=== PATIENT | male | born 1995 | race Caucasian/White ===

== ENCOUNTER 2016-05-18 14:25 | Emergency (ER) | payer OTHER ==
[~2016-05-18] VITALS: Ht 182.9 cm; Wt 68.2 kg
[~2016-05-18 14:25] MED LIST: ASPI-653 PO
[2016-05-18 14:40] VITALS: BP 114/76; PULSE 92; RESP 18; O2SAT 98
[2016-05-18] MEDS ORDERED: KEP500TA PO (16:03)
--- NOTE | 2016-05-18 16:11 | ED.REPORT ---
HPI-Abd Pain M Under 40 Date of Service May 18, 2016 ED Provider: Doc,Ed MD A 20 year old male with a history of splenectomy, seizures, and smoking presents to the ED complaining of a painful lump over his pubic bone. He noticed the lump this morning. The pt also had strep throat two to three weeks ago and was prescribed antibiotics. His symptoms included sore throat, fever, rhinorrhea, and coughing. These symptoms have persisted despite antibiotic use. The pt also vomited once two days ago and experiences chest pain with coughing. He denies any history of abscess. Nursing Notes Stated Complaint: FLU SYMPTOMS Chief Complaint: Male Abdominal Pain Nursing Notes Reviewed: Yes Allergies: Coded Allergies: No Known Allergies (Unverified Allergy, Unknown, 02/02/15) Scheduled Aspirin-Expunged Drug, Do Not Renew! (Lo-Dose Aspirin-Expunged Drug, Do Not Renew!) 81 Mg Tablet.dr 81 MG PO DAILY Levetiracetam (Keppra) 500 Mg Tablet 500 MG PO BID Sulfamethoxazole/Trimeth 800-160 mg (Bactrim DS) 1 Each Tablet 1 TABLET PO BID General Time Seen by MD: 16:11 Chief Complaint Other (Possible abscess) Hx Obtained From: Patient, Other family... (Mother) Arrived By: Walk-in Sudden in Onset?: No Onset Occurred: 5 - 8 hours ago Symptom Duration: Since onset Recent Healthcare: No recent hospitalization, Recent doctor visit Similar Sx Previous: No Past Medical History Past Medical History Seizures Past Surgical History Splenectomy due to trauma Left knee surgery Smoking History Current Every Day Smoker Social History Alcohol Use: "Social" Drug Use: Denies drug use Ambulatory Status Independent Review of Systems Review of Systems Note: lump on top of pubic bone Constitutional: Reports: Fever Respiratory: Reports: Non-productive cough Cardiovascular: Reports: Chest pain (with cough) GI: Reports: Nausea, Vomiting Musculoskeletal: Denies: Back pain, Neck pain Complete sys rev & neg: except as marked. Ears / Nose / Throat: Reports: Sore throat Skin: Denies Rash Allergy / Immune: Reports: Rhinorrhea Physical Exam Initial Vital Signs Vital Signs (First) Date Time Temp Pulse Resp B/P Pulse Ox O2 Delivery O2 Flow Rate FiO2 05/18/16 14:40 37.6 92 18 114/76 98 Room Air Initial VS: Reviewed General/Constitutional: Awake, Alert Respiratory / Chest: Atraumatic, Breath sounds NL, Breath sounds = bilat, No respiratory distress Cardiovascular: Heart rate NL, Regular rhythm, Heart sounds NL Abdomen: Atraumatic, Soft, Non-tender Back: Atraumatic, Full range of motion Head / Eyes: Atraumatic, Normocephalic, PERRL, EOMI ENT: Atraumatic, Airway patent, Mucous membranes moist Neurologic: Oriented X3, Speech NL, No motor deficits, No sensory deficits Neck: Atraumatic, Supple, Full range of motion Upper Extremity / MS: Atraumatic, Full range of motion Lower Extremity / Pelvis / MS: Atraumatic, Full range of motion Skin: Atraumatic, Color NL, Warm, Dry 1 x 1 cm firm erythematous area superior to the penis no fluctuance or drainage no testicular pain no hernia Psychiatric: Affect NL, Mood NL Re-Eval/Medical Decision Med Decision/Clinical Course 20-year-old male history of splenectomy, seizure disorder presenting with swelling above the groin. He has a small folliculitis on exam. There is no abscess at this time, fluctuance, discharge. There is a mild surrounding cellulitis. We will treat with Bactrim. Return precautions given. Follow up primary doctor 2 days for reevaluation. Source of Hx: Old records, Family Re-Evaluation/Progress : Time of Eval: 16:11 Patient Status: Condition improved Re-Evaluation/Progress Note: Pt informed of the diagnosis and plan for discharge during the intial interview. The pt understands and agrees with the plan. All questions are addressed at this time. Counseled Regarding: Diagnosis, Need for follow-up, When/why to return to ED Patient Discharge & Departure Primary Impression: Folliculitis Disposition: Home Discharge Condition All VS Reviewed: Yes Condition: Stable Patient Instructions: Folliculitis (ED) Additional Instructions: Take Bactrim twice daily for seven days. Follow up with your primary care physician for further evaluation. Return to the ED if you develop any new or worsening symptoms including increasing pain or swelling. Referrals: Barbara Palmer (PCP) Scribe Attestation Portions of this note were transcribed by Graeme Steve I, Dr. Lange personally performed the history, physical exam and medical decision-making; I reviewed and confirmed the accuracy of the information in the transcribed note. Signed by: Roslyn Taveras, 05/18/16 and 18:19. copies to: Barbara Palmer Ben M MD May 18, 2016 16:11 GRAEME STEVE May 18, 2016 16:24
[2016-05-18] MEDS ORDERED: SULF1TAB7 PO (16:24)
[2016-05-18 16:47] VITALS: BP 109/70; PULSE 82; RESP 16; O2SAT 95
== END 2016-05-18 16:27 | disposition home or self-care (01) ==
LOC: SED 14:25
DX: L73.9 Follicular disorder, unspecified (principal); R07.9 Chest pain, unspecified; J02.9 Acute pharyngitis, unspecified; J34.89 Other specified disorders of nose and nasal sinuses; R50.9 Fever, unspecified; R05 Cough; F17.200 Nicotine dependence, unspecified, uncomplicated

== ENCOUNTER 2016-05-23 13:09 | Emergency (ER) | payer OTHER ==
[~2016-05-23 13:09] MED LIST changes: +KEP500TA PO; +SULF1TAB7 PO
--- NOTE | 2016-05-23 13:19 | ED.REPORT ---
HPI-Seizure Date of Service May 23, 2016 ED Provider: Alex Whelan DO 20 year old male with known seizure disorder presents to the ER via EMS due to seizure just prior to arrival. He also reports head injury inflicted during the seizure. Patient denies neck pain, and any other injuries secondary to the episode. He states that he is out of Keppra and as a result he has missed doses for the past two days. Last seizure was just over a month ago. Nursing Notes Stated Complaint: SEIZURE Nursing Notes Reviewed: Yes Allergies: Coded Allergies: No Known Allergies (Unverified Allergy, Unknown, 02/02/15) Scheduled Aspirin-Expunged Drug, Do Not Renew! (Lo-Dose Aspirin-Expunged Drug, Do Not Renew!) 81 Mg Tablet.dr 81 MG PO DAILY Levetiracetam (Keppra) 500 Mg Tablet 500 MG PO BID Levetiracetam (Keppra) 500 Mg Tablet 500 MG PO BID Sulfamethoxazole/Trimeth 800-160 mg (Bactrim DS) 1 Each Tablet 1 TABLET PO BID General Time Seen by Provider: 13:17 Chief Complaint Chief Complaint: Seizure, generalized Seizure Anatomic Location: Generalized Hx Obtained From: Patient Arrived By: Ambulance Onset Occurred: Just prior to arrival Progression Since Onset: Resolved Associated with: Denies: Neck pain Pertinent Negative: Pt denies other symptoms Related History: Reports: Known seizure disorder Similar Sx Previous: Yes Past Medical History Past Medical History Seizures Past Surgical History Splenectomy due to trauma Left knee surgery Smoking History Current Every Day Smoker Social History Alcohol Use: "Social" Drug Use: Denies drug use Ambulatory Status Independent Review of Systems Respiratory: Denies: Non-productive cough, Shortness of breath Cardiovascular: Denies: Chest pain Musculoskeletal: Denies: Back pain, Extremity pain, Joint pain, Lumbar pain, Neck pain, Thoracic pain Neurologic: Reports: Seizure Complete sys rev & neg: except as marked. Physical Exam Initial Vital Signs Vital Signs (First) Date Time Temp Pulse Resp B/P Pulse Ox O2 Delivery O2 Flow Rate FiO2 05/23/16 13:21 37.0 122 12 119/51 93 Room Air 05/23/16 13:53 2 Initial VS: Reviewed Extremities: Vascular intact, Neuro intact, No swelling, No tenderness Skin: Warm, Dry, No cyanosis Psychiatric: Mood/affect normal, Behavior normal, Normal thought content General/Constitutional: Awake, Alert, Well developed, Well nourished Neck: Supple, No meningismus, Full range of motion, No swelling, Non-tender Respiratory / Chest: Breath sounds NL, Breath sounds = bilat, No respiratory distress, No rales, No rhonchi, No wheezing Cardiovascular: Heart rate NL, Regular rhythm, Heart sounds NL, Peripheral circulation NL Neurologic: Oriented X3, Speech NL, No motor deficits, No sensory deficits, CN II - XII intact, Cerebellar NL, Memory NL Interpretation & Diagnostics Lab Results Interpretation Result Diagram: 05/23/16 1341 05/23/16 1341 Test 05/23/16 13:41 White Blood Count 10.7th/mm3 (3.8-10.1) Red Blood Count 4.77mil/mm3 (4.40-5.80) Hemoglobin 13.7g/dL (13.8-17.2) Hematocrit 42.1% (41.0-50.0) Mean Corpuscular Volume 88.3fL (81-100) Mean Corpuscular Hemoglobin 28.7pg (27.0-35.0) Mean Corpuscular Hemoglobin Concent 32.5% (32.0-37.0) Red Cell Distribution Width 14.5% (12.3-15.4) Platelet Count 327bil/L (150-400) Neutrophils (%) (Auto) 22.4% (40-74) Lymphocytes (%) (Auto) 65.2% (14-46) Monocytes (%) (Auto) 10.7% (4-12) Eosinophils (%) (Auto) 0.8% (0-5) Basophils (%) (Auto) 0.5% (0-3) Sodium Level 139mEq/L (134-144) Potassium Level 4.0mEq/L (3.5-5.2) Chloride Level 95mEq/L (97-108) Carbon Dioxide Level 10mmol/L (18-29) Blood Urea Nitrogen 13mg/dL (6-20) Creatinine 1.16mg/dL (0.76-1.27) Estimat Glomerular Filtration Rate 84mL/min (>59) Glucose Level 123mg/dL (60-99) Calcium Level 9.3mg/dL (8.5-10.1) Total Bilirubin 0.2mg/dL (0.0-1.2) Aspartate Amino Transf (AST/SGOT) 28U/L (0-50) Alanine Aminotransferase (ALT/SGPT) 13U/L (0-44) Alkaline Phosphatase 88U/L (25-150) Total Protein 8.4g/dL (6.4-8.4) Albumin 4.8g/dL (3.4-5.0) ECG Interpretation ECG Interpretation: Sinus tachycardia, rate 139 Time: 13:48 Interpreted by: ED physician CT Head Interpretation IMPRESSION: No acute intracranial process Dictated by: Akira Silva M.D. on 05/23/2016 at 14:47 Approved by: Akira Silva M.D. on 05/23/2016 at 14:50 Study: Head CT no contrast Interpretation / Wet Read by: Interpret - Radiologist Re-Eval/Medical Decision Med Decision/Clinical Course Patient is a fairly clear history of noncompliance with Keppra for the last 48 hours, initially his family reports that he has not been sleeping well. These things combined may have precipitated breakthrough seizure. This does not meet criteria for status epilepticus. Currently the plan will be to monitor this patient to normal baseline and discharge versus admission if recurrent seizures develop. Source of Hx: Old records Re-Evaluation/Progress #1: Time of Eval: 13:23 Re-Evaluation/Progress Note: Patient began seizing during the initial interview. Re-Evaluation/Progress #2: Time of Eval: 13:35 Re-Evaluation/Progress Note: Patient is post-ictal. Re-Evaluation/Progress #3: Time of Eval: 13:39 Re-Evaluation/Progress Note: Awake, responds to his name. Looks at me and responds "Will" when I ask his name. Re-Evaluation/Progress #4: Time of Eval: 15:04 Re-Evaluation/Progress Note: Patient is now accompanied by a female insole and heel stiffener. Discussed lab and CT results, physical examination findings and plan to discharge. Patient is amenable to the plan. Return precautions given. All other questions addressed. Re-Evaluation/Progress #5: Time of Eval: 15:22 )( Re-Eval Neurologic Exam: Alert, Oriented X3 Re-Evaluation/Progress Note: Verbal discharge instructions given. Patient understands and agrees to the plan. All other questions addressed. Counseled Regarding: Diagnosis, Lab results, Need for follow-up, When/why to return to ED Discharge & Departure Impression: Primary Impression: Breakthrough seizure Disposition: Home Discharge Condition All VS Reviewed: Yes Condition: Stable Patient Instructions: Epilepsy (DC) Additional Instructions: You were seen in the ER today for your seizures. Resume taking your Keppra as directed. Call Dr. Asif, Neurology, at the number provided to arrange a follow-up appointment at the next available date. Return to the ER if you develop fever, seizures that will not resolve, and any other worsening or concerning symptoms. Avoid alcohol and drugs, and get a good night of sleep. I hope that you feel better soon. Referrals: Barbara Palmer (PCP) Christal Asif MD Attestation Portions of this note were transcribed by Chuy Ramos. I, Dr. Whelan, personally performed the history, physical exam and medical decision-making; I reviewed and confirmed the accuracy of the information in the transcribed note. Signed by: Roslyn Tracy, 05/23/2016 and 15:29 copies to: Christal Asif MD; Barbara aPlmer Timothy S DO May 23, 2016 13:19 CHUY RAMOS May 23, 2016 13:37
[2016-05-23] MEDS ORDERED: levETIRAcetam Inj 1,500 MG in Dextrose 5% 100 ML IV ONE (13:20)
[2016-05-23 13:21] VITALS: BP 119/51; PULSE 122; RESP 12; O2SAT 93
[2016-05-23 13:45] LABS: BASOPHILS % (AUTO) 0.5 % (0-3); EOSINOPHILS % (AUTO) 0.8 % (0-5); MONOCYTES % (AUTO) 10.7 % (4-12); Mean Corpuscular Hemoglobin 28.7 pg (27.0-35.0); Mean Corpuscular Volume 88.3 fL (81-100); NEUTROPHILS % (AUTO) 22.4 % (40-74); Platelet Count 327 bil/L (150-400)
[2016-05-23 13:53] VITALS: BP 117/31; PULSE 139; RESP 19; O2SAT 94
--- NOTE | 2016-05-23 14:51 | DRSVH ---
PROCEDURE: CT BRAIN WITHOUT CONTRAST ([id number]) INDICATIONS: recurrent seizures TECHNIQUE: Noncontrast 4.5 mm thick angled axial sections acquired from the foramen magnum to the vertex, with c oronal reformats. COMPARISON: [facility], CT, CT BRAIN WO CON, 02/02/2015, 13:45. FINDINGS: Image quality: Excellent. CSF spaces: Basal cisterns are patent. No extra-axial fluid collections. Ventricles are normal in size and shape. Brain: No midline shift. No intracranial masses or hemorrhage. Alberts-white matter interface is norm al. Skull and face: Calvarium and visualized facial bones are intact, without suspicious lesions. Sinuses: Visualized sinuses and mastoids are clear except for minimal opacification of left ethmoid air cells. IMPRESSION: No acute intracranial process Dictated by: Akira Silva M.D. on 05/23/2016 at 14:47 Approved by: Akira Silva M.D. on 05/23/2016 at 14:50
[2016-05-23] MEDS ORDERED: KEP500TA PO (15:31)
[2016-05-23 17:43] VITALS: BP 101/38; PULSE 113; RESP 14; O2SAT 96
[2016-05-23 20:14] VITALS: BP 114/61; PULSE 93; RESP 18; O2SAT 95
== END 2016-05-23 20:10 | disposition home or self-care (01) ==
LOC: SED 13:09 → EDBD 13:09 → EDUNIT# 13:09 → SED 20:10
DX: R56.9 Unspecified convulsions (principal); F17.200 Nicotine dependence, unspecified, uncomplicated; Z79.82 Long term (current) use of aspirin
CPT/HCPCS: 36415; 70450; 80053; 85025; 93005; 96374; 96375; 96376; 99284; J1953; J2060

== ENCOUNTER 2016-06-08 17:37 | Emergency (ER) | payer OTHER ==
[~2016-06-08] VITALS: Ht 182.9 cm; Wt 68.2 kg
[2016-06-08 17:52] VITALS: BP 114/77; PULSE 107; O2SAT 97
--- NOTE | 2016-06-08 18:55 | ED.REPORT ---
HPI-Rash / Abscess Date of Service Jun 08, 2016 ED Provider: Russell Yin MD Patient is a 20 year old male who presents to the ED due to a rash on his groin onset yesterday. He was last seen at the ED 05/18/16 due to a painful lump on his pubic bone at which time he was diagnosed with folliculitis. He finished a course of Bactrim yesterday which cleared up his previous lumps. The lumps had drainage, pus, and blood. He noticed a reappearance of a few bumps on his penis this morning, which are not painful. He also has diffuse small bumps all over his trunk and extremities for the past few days. He reports his girlfriend was treated for scabies 4 days ago and he may have contracted it. He denies fever, penile discharge, and other symptoms. Nursing Notes Stated Complaint: BUMPS ON PUBIC BONE, HEAD, AND PENIS Chief Complaint: Skin Rash/Abscess Nursing Notes Reviewed: Yes Allergies: Coded Allergies: No Known Allergies (Unverified Allergy, Unknown, 02/02/15) Scheduled Aspirin-Expunged Drug, Do Not Renew! (Lo-Dose Aspirin-Expunged Drug, Do Not Renew!) 81 Mg Tablet.dr 81 MG PO DAILY Levetiracetam (Keppra) 500 Mg Tablet 500 MG PO BID Levetiracetam (Keppra) 500 Mg Tablet 500 MG PO BID Permethrin (Elimite) 60 Gm Cream..g. 60 GM TP ONCE Sulfamethoxazole/Trimeth 800-160 mg (Bactrim DS) 1 Each Tablet 1 TABLET PO BID Scheduled PRN Hydrocodone-Acetaminophen 5-325 mg (Hydrocodone-Acetaminophen 5-325 mg) 1 Each Tablet 1 TABLET PO Q4H PRN PRN For Pain General Time Seen by MD: 18:50 Chief Complaint Rash Hx Obtained From: Patient Arrived By: Walk-in Onset Occurred: Yesterday Context of Onset: Exposure, scabies Symptom Duration: Since onset Location: : Generalized Quality: Itching Severity: Current: No pain currently Recent Healthcare: Recent doctor visit Similar Sx Previous: Yes Past Medical History Past Medical History Seizures Past Surgical History Splenectomy due to trauma Left knee surgery Smoking History Current Every Day Smoker Social History Alcohol Use: "Social" Drug Use: Denies drug use Ambulatory Status Independent Review of Systems Constitutional: Denies: Chills, Fever Skin: Reports Itching, Reports Rash Complete sys rev & neg: except as marked. Male: Reports Penile lesion, Denies Penile discharge Physical Exam Physical Exam Notes: does have an abscess on bedside ultrasound Initial Vital Signs Vital Signs (First) Date Time Temp Pulse Resp B/P Pulse Ox O2 Delivery O2 Flow Rate FiO2 06/08/16 17:52 37 107 114/77 97 Room Air 06/08/16 21:14 14 Initial VS: Reviewed Head / Eyes: Atraumatic, Normocephalic, PERRL ENT: Mucous membranes moist, Conjunctiva normal, No scleral icterus Neck: Supple, Non-tender, Full range of motion Respiratory: Breath sounds normal, Clear to auscultation, No respiratory distress Cardiovascular: Regular rate & rhythm, Heart sounds normal, Intact distal pulses Abdomen / GI: Soft, Non-tender, No guarding, No rebound, No distention Back: No CVA tenderness Extremities: Vascular intact, Neuro intact Neurologic: Alert, Oriented, Nonfocal Psychiatric: Mood/affect normal, Behavior normal, Normal thought content General/Constitutional: Awake, Alert, No acute distress, Well appearing, Cooperative Color / Condition: Positive: Rash present Rash / Lesion Notes: scattered, small, flesh colored, macular, papular lesions on extremities and trunk do not show a preference for web regions interdigitally- no tracking from them couple of lumps on the glands of the penis without any kind of blister 3 cm, firm, tender, lump in the groin- doesn't feel like an abscess no cervical adenopathy no axillary adenopathy Rash / Lesion Location: Positive: Abdomen, Arm L, Arm R, Generalized, Genitalia , Leg L, Leg R, Trunk Interpretation & Diagnostics Lab Results Interpretation Test 06/08/16 19:53 06/08/16 20:45 Hold Burns Top Tube Received (Received) ECG Interpretation ECG Interpretation: Procedures Incision & Drainage Abscess I & D Abscess: small incision made in midline break up loculations with dressings in place Time: 20:44 Procedure Performed by: ED physician Consent / Setup / Site Prep: Informed consent provided, Consent from patient , Time-out performed, Hand hygiene observed, Stand sterile technique, Standard surgical scrub, Sterile drapes applied Skin Preparation Agent: Betadine Local Anesthesia: Lidocaine 1% Incised Abscess with Scalpel: #10 Pus Drained: Medium Post-Procedure / Complications: Packing placed, Dressing applied, No complications, Condition improved, Tolerated procedure well, Patient stable Re-Eval/Medical Decision Re-Evaluation/Progress #1: Time of Eval: 20:00 Re-Evaluation/Progress Note: Bedside ultrasound performed. Abscess present. Re-Evaluation/Progress #2: Time of Eval: 20:44 Re-Evaluation/Progress Note: Procedure performed. Abscess drained. Counseled Regarding: Diagnosis, Lab results, Need for follow-up, When/why to return to ED Discharge & Departure Impression: Primary Impression: Abscess Additional Impression: Scabies Disposition: Home Discharge Condition All VS Reviewed: Yes Condition: Stable Additional Instructions: Emergency department today we dilated and treated an abscess in the pubic region. This was opened and a packing was placed. We have started trimethoprim sulfa, take this twice daily for 10 days. May use recurrence/APAP one to 2 every 4 hours as needed for pain. We recommend using this prior to doing the packing change. To change packing, removal of the old packing, shower and rinse the wound, and degenerative replace the packing with new material as shown. Do this daily. Emergency department in 2 days for wound check. Return immediately for fevers, shaking chills increasing redness or swelling at the site of the abscess. Keep the wound covered with a Band-Aid. Permethrin as prescribed, itching may persist for some time after treatment. Referrals: Barbara Palmer (PCP) Scribe Attestation Portion of this note were transcribed by Tawana Verduzco. I, Dr. Yin, personally performed the history, physical exam, and medical decision-making: I reviewed and confirmed the accuracy for the information in the transcribed note. Signed by: kwasi Alonso, 06/08/16 2200 copies to: Barbara Palmer Donald L MD Jun 08, 2016 18:55 Tawana Verduzco Jun 08, 2016 19:16
[2016-06-08] MEDS ORDERED: _HYDROcodone/APAP 5-325 mg Tablet PO PRN (19:15)
[2016-06-08] MEDS ORDERED: _Trimethoprim-Sulfa 160/800 mg Tablet PO SCH (20:30)
[2016-06-08] MEDS ORDERED: HYDR-4003 PO (21:00)
[2016-06-08] MEDS ORDERED: PERM60CR17 TP (21:00)
[2016-06-08 21:14] VITALS: BP 118/74; PULSE 80; RESP 14; O2SAT 99
== END 2016-06-08 21:15 | disposition home or self-care (01) ==
LOC: SED 17:37
DX: L02.214 Cutaneous abscess of groin (principal); B86 Scabies; F17.200 Nicotine dependence, unspecified, uncomplicated; Z79.82 Long term (current) use of aspirin